=== PATIENT | male | born 1985 | race Hispanic/Latino ===

== ENCOUNTER 2024-12-22 09:02 | Emergency (ER) | payer OTHER, BC ==
[~2024-12-22] VITALS: Ht 167.6 cm; Wt 103.4 kg
[2024-12-22] MEDS: ketOROlac 30MG VIAL (30MG/ML) IM ONE (10:29)
[2024-12-22] MEDS ORDERED: KETO10TA2 PO (11:21)
--- NOTE | 2024-12-22 11:21 | ERN ---
General Chief Complaint: Upper Extremity Pain/Injury Stated Complaint: ARM INJURY Time Seen by MD: 09:28 History of Present Illness Initial Comments 38-year-old male came in for right forearm pain after his arm caught in the machine and twisted his arm. Patient states that his pain is located middle of the forearm. Patient denies pain in right elbow and shoulder. Patient was able to move his hand and fingers. Patient otherwise has no concerns. Past Medical History Past Medical History: Diabetes-Type II Past Surgical History: Other Surgical History Other: HERNIA REPAIR ROS Dictation CONSTITUTIONAL: Negative except for HPI HEAD/FACE: Negative except for HPI EENT: Negative except for HPI RESPIRATORY: Negative except for HPI GASTROINTESTINAL/ABDOMINAL: Negative except for HPI GENITOURINARY: Negative except for HPI MUSCULOSKELETAL: Negative except for HPI INTEGUMENTARY: Negative except for HPI NEUROLOGICAL/PSYCH: Negative except for HPI HEMATOLOGIC/LYMPHATIC: Negative except for HPI All Systems Negative, Except as noted above. 13 point review of systems assessed and all negative except for above. Physical Exam Physical Exam Dictation Vital Signs reviewed General Appearance: Alert, oriented x 3, no acute distress, well developed, nourished. Head and Face: non-traumatic. Eyes: PERRL, pink conjunctivas, eyelid no trauma, anterior chamber with arcus senilis. Ears: Pinnas intact and no signs of trauma or erythema ear canals clear and no discharge TM no erythema Nose: No discharge, no bleeding. Oropharynx: Mouth normal, tongue pink, pharynx clear,no erythema, tonsils no exudates, no abscesses noted, mucous membrane moist Neck: Supple, non-tender, no thyromegaly, no masses, no JVD, no bruits Breast:Deferred Chest:No tenderness, no crepitus, no paradoxical movement, no retractions Lungs:Clear, well-ventilated, symmetric, no rales, no wheezing, no rhonchi, no stridor, good breath sounds bilaterally Heart: Regular rate, regular rhythm, no murmur, no gallops Vascular: no peripheral edema, Abdomen: Soft, positive bowel sounds, nondistended, no guarding, nontender, no rebound, no masses no hepatomegaly, no splenomegaly, no Trevino's sign, no hernias. Rectal: Deferred Genital: Deferred Neurological: Normal speech, motor function intact, sensory function intact Musculoskeletal: Neck nontender, full range of motion, back nontender, full range of motion, Extremities: nontender, full range of motion Skin: Color pink, dry, no turgor, no rash, no lacerations, no abrasions, no contusions. Lymphatic: Deferred MDM MDM: Differential diagnosis: There are no social concerns with this patient. Prescription drug management Prescriptions will include: Medical management and examination interpretation discussions were had by me with other qualified healthcare professionals as indicated for the patient's care. There is a midshaft radius fracture of right forearm. Posterior splint is placed and patient was to follow up with orthopedic surgery. After the splint patient has good distal pulses and sensation intact. Patient understands and agrees with plan of care. ED Course Orders Procedure Category Date Status Time Forearm 2vws Rt RAD 12/22/24 Taken 09:30 Ketorolac PHA 12/22/24 Complete Tromethamine 30mg/Ml 10:30 Current Medications Medications (Trade) Dose Ordered Sig/Scotty Route PRN Reason Start Time Stop Time Status Last Admin Dose Admin Ketorolac Tromethamine (toRADol) 30 mg ONCE ONCE IM 12/22/24 10:30 12/22/24 10:31 DC 12/22/24 10:29 Vital Signs Date Time Temp Pulse Resp B/P (MAP) Pulse Ox O2 Delivery O2 Flow Rate FiO2 12/22/24 09:05 98.1 116 20 170/107 94 Room Air DX & DISP Disposition: Discharge Departure Impression: Primary Impression: Right radial fracture Condition: Stable Scripts Ketorolac Tromethamine (Ketorolac Tromethamine) 10 Mg Tablet 1 TAB PO BID for 5 Days, #10 TAB 0 Refills Prov: ESPINOZA MACKAY MD 12/22/24 Referrals: SELF,REFERRAL (PCP) LIO CORONA MD, USMAN I MD Dec 22, 2024 11:21
[2024-12-22 11:44] VITALS: BP 154/77; PULSE 84; RESP 16; TEMP 98.1; O2SAT 98
--- NOTE | 2024-12-22 11:44 | HMCIMG ---
FOREARM 2VWS RT HISTORY: Injury COMPARISON: None TECHNIQUE: 2 images of right forearm were obtained. FINDINGS: Frontal fracture with displacement are seen involving the distal portion of the right radius. No dislocation is seen. Degenerative changes are seen. IMPRESSION: 1. Findings as described above.
--- NOTE | 2024-12-22 11:51 | NUR ---
POSTERIOR SPLINT TO RIGHT ARM AND ARM SLING PLACED ON PT PER DR. MACKAY, PT TOLERATED WELL. CAPILLARY REFILL LESS THAN 2 SECONDS TO FINGERS ON RIGHT HAND S/P SPLINT
== END 2024-12-22 11:55 | disposition home or self-care (01) ==
LOC: EDH 09:02
DX: S52.501A Unspecified fracture of the lower end of right radius, initial encounter for closed fracture (principal); E11.9 Type 2 diabetes mellitus without complications; Z98.890 Other specified postprocedural states; X50.1XXA Overexertion from prolonged static or awkward postures, initial encounter; Y93.89 Activity, other specified; Y92.89 Other specified places as the place of occurrence of the external cause; Y99.8 Other external cause status
CPT/HCPCS: 99283; 73090; 29125; 96372; J1885